=== PATIENT | male | born 1985 | race American Indian/Alaskan Native ===

== ENCOUNTER 2017-09-27 14:46 | Emergency (ER) | payer MEDICAID ==
[2017-09-27] MEDS ORDERED: ULTRAM PO ONE (20:34)
--- NOTE | 2017-09-27 20:37 | Emergency Department Report ---
Chief Complaint: Extremity Injury, Lower Stated Complaint: LEFT FOOT PAIN Time Seen by Provider: 09/27/17 19:58 - HPI History of Present Illness: The patient is a 32-year-old male who presents for evaluation of left ankle pain. The patient was left leg pain for the past 2 weeks, constant for the past one week, achy in quality, moderate to severe, exacerbated with weightbearing or ambulation. The patient denies blunt trauma to the ankle, twisting of the ankle, redness, ecchymosis, paresthesia, motor deficit, or fever. - Exam Vital Signs: Vital Signs 09/27/17 16:31 Temperature 97.7 F Pulse Rate 94 H Respiratory 16 Rate Blood Pressure 128/77 O2 Sat by Pulse 100 Oximetry MSE screening note: Focused history and physical exam performed. Due to findings the following was ordered: ED Disposition for MSE Condition: Stable Referrals: E,[facility] [Other] - 3-5 Days
--- NOTE | 2017-09-27 21:52 | XRay Report ---
FINAL REPORT PROCEDURE: XR ANKLE 2V LT TECHNIQUE: Left ankle, two views HISTORY: left lateral and medial malleolus pain COMPARISON: No prior studies are available for comparison. FINDINGS: There is interosseous ligament calcification, which can be seen with prior injury. No acute fracture or dislocation is seen. The ankle mortise and talar dome are intact. IMPRESSION: No acute abnormality is seen
--- NOTE | 2017-09-27 22:11 | Emergency Department Report ---
ED Extremity Problem HPI - General Chief complaint: Extremity Injury, Lower Stated complaint: LEFT FOOT PAIN Time Seen by Provider: 09/27/17 19:58 Source: patient Mode of arrival: Ambulatory Limitations: No Limitations - History of Present Illness Initial comments: The patient is a 32-year-old male who presents for evaluation of left ankle pain. The patient was left leg pain for the past 2 weeks, constant for the past one week, achy in quality, moderate to severe, exacerbated with weightbearing or ambulation. The patient denies blunt trauma to the ankle, twisting of the ankle, redness, ecchymosis, paresthesia, motor deficit, or fever. Patient has no past medical history currently takes no medication has no known drug allergies. Patient is wearing a boot on his foot that was long since father. MD Complaint: extremity pain Severity scale (0 -10): 6 - Related Data Previous Rx's Medication Instructions Recorded Last Taken Type Ibuprofen 800 mg PO Q8H PRN #30 tablet 09/27/17 Unknown Rx Allergies Allergy/AdvReac Type Severity Reaction Status Date / Time No Known Allergies Allergy Unverified 09/27/17 16:31 ED Review of Systems ROS: Stated complaint: LEFT FOOT PAIN Other details as noted in HPI Constitutional: denies: chills, fever Eyes: denies: eye pain, eye discharge, vision change ENT: denies: ear pain, throat pain Respiratory: denies: cough, shortness of breath, wheezing Cardiovascular: denies: chest pain, palpitations Endocrine: no symptoms reported Gastrointestinal: denies: abdominal pain, nausea, diarrhea Genitourinary: denies: urgency, dysuria Musculoskeletal: joint swelling (rt foot), arthralgia (rigt foot). denies: back pain Skin: denies: rash, lesions Neurological: denies: headache, weakness, paresthesias Psychiatric: denies: anxiety, depression Hematological/Lymphatic: denies: easy bleeding, easy bruising ED Past Medical Hx - Past Medical History Previous Medical History?: No - Surgical History Past Surgical History?: No - Social History Smoking Status: Never Smoker Substance Use Type: None - Medications Home Medications: Home Medications Medication Instructions Recorded Confirmed Last Taken Type Ibuprofen 800 mg PO Q8H PRN #30 tablet 09/27/17 Unknown Rx ED Physical Exam - General Limitations: No Limitations General appearance: alert, in no apparent distress, obese - Eye Eye exam: Present: normal appearance - ENT ENT exam: Present: mucous membranes moist - Cardiovascular Cardiovascular Exam: Present: regular rate, normal rhythm. Absent: systolic murmur, diastolic murmur, rubs, gallop - Expanded Lower Extremity Exam Right Hip exam: Present: normal inspection, full ROM Upper Leg exam: Present: normal inspection, full ROM Knee exam: Present: normal inspection, full ROM Lower Leg exam: Present: normal inspection, full ROM Ankle exam: Present: full ROM, swelling (mild). Absent: tenderness Foot/Toe exam: Present: normal inspection, full ROM, tenderness (plantar ). Absent: swelling, abrasion, ecchymosis, deformity, erythema, puncture wound Neuro vascular tendon exam: Present: no vascular compromise - Neurological Exam Neurological exam: Present: alert, oriented X3 - Psychiatric Psychiatric exam: Present: normal affect, normal mood ED Course Vital Signs 09/27/17 16:31 Temperature 97.7 F Pulse Rate 94 H Respiratory 16 Rate Blood Pressure 128/77 O2 Sat by Pulse 100 Oximetry ED Medical Decision Making - Radiology Data Radiology results: report reviewed Left ankle 2 view impression: No acute abnormalities as seen - Medical Decision Making Patient has been evaluated by this provider fast track. I discussed the patient that his x-rays shows no acute abnormalities. I discussed the patient should be taken ibuprofen. Discussed the need to eat prior to taken it drink plenty of fluids. Discussed the patient I will refer him to an orthopedist. Patient continue with the ice and elevation. Patient does not have a primary care provider I will list one below. He verbalized understanding Critical care attestation.: If time is entered above; I have spent that time in minutes in the direct care of this critically ill patient, excluding procedure time. ED Disposition Clinical Impression: Right ankle pain Qualifiers: Chronicity: unspecified Qualified Code(s): M25.571 - Pain in right ankle and joints of right foot Disposition: DC-01 TO HOME OR SELFCARE Is pt being admited?: No Does the pt Need Aspirin: No Condition: Stable Additional Instructions: Please take ibuprofen as prescribed. Please drink plenty of fluids eat prior to taking. Follow up in orthopedics. Prescriptions: Ibuprofen 800 mg PO Q8H PRN #30 tablet PRN Reason: Pain Referrals: [facility] [Other] - 3-5 Days GERALDO DARLING MD [Staff Physician] - 3-5 Days LUIS ANGEL CAGLE MD [Staff Physician] - 3-5 Days Forms: Work/School Release Form(ED)
[2017-09-27 22:20] VITALS: BP 124/68
== END 2017-09-27 22:24 | disposition home or self-care (01) ==
LOC: ED 14:46
DX: M25.572 Pain in left ankle and joints of left foot (principal)
CPT/HCPCS: 99283